=== PATIENT | male | born 1960 | race Hispanic/Latino ===

== ENCOUNTER 2017-12-07 12:05 | Inpatient (IN) | payer BC, MEDICARE ==
[2017-12-07] MEDS ORDERED: Sodium Chloride 0.9% 1,000 ML IV SCH (12:45)
--- NOTE | 2017-12-07 13:03 | ED PDOC ---
Arrival/HPI - General Chief Complaint: Fever Time Seen by Provider: 12/07/17 12:10 Historian: Patient - History of Present Illness Narrative History of Present Illness (Text): 12/07/17 12:43 57 year old male, with past medical history of AVM with seizures, asthma, COPD, hypertension, diabetes and failed back syndrome, presents to the Emergency Department accompanied by , complaining of fever and chills since 4 days. Patient states progressively increasing temperature since onset with Tmax of 102, intermittently improved with Motrin. Patient states associated polyuria with one episode of hematuria, and constipation but denies any other somatic complaints. Patient reports visiting Dr. Waters with the presented symptoms and was subsequently referred to the ED for medical evaluation. Patient denies any nausea, vomiting, diarrhea, abdominal pain, dysuria, rectal pain, body aches, rash, chest pain, shortness of breath, cough, headache, dizziness, neck pain, neck stiffness, back pain, or any other complaints. Patient denies any recent travel or unusual diet intake. Patient informs sick contact with kids on the football field 2 weeks ago. Additionally, patient informs lower dental work-up few days ago with no signs of infection. PMD: Dr. Waters Time/Duration: < week Symptom Onset: Gradual Symptom Course: Unchanged Activities at Onset: Light Context: Home Past Medical History - Provider Review Nursing Documentation Reviewed: Yes - Cardiac Hx Hypertension: Yes - Pulmonary Hx Asthma: Yes - Endocrine/Metabolic Hx Diabetes Mellitus Type 1: Yes - Psychiatric Hx Substance Use: No - Surgical History Hx Cholecystectomy: Yes - Anesthesia Hx Anesthesia: Yes Hx Anesthesia Reactions: No Hx Malignant Hyperthermia: No Family/Social History - Physician Review Nursing Documentation Reviewed: Yes Family/Social History: No Known Family HX Smoking Status: Never Smoked Hx Alcohol Use: No Hx Substance Use: No Allergies/Home Meds Allergies/Adverse Reactions: Allergies levofloxacin Allergy (Verified 12/07/17 12:43) DIARRHEA Home Medications: Home Meds Medication Instructions Recorded Confirmed Albuterol Sulfate [Ventolin Hfa] 1 puff IH Q6 PRN 12/07/17 12/07/17 GlipiZIDE [Glipizide] 10 mg PO BID 12/07/17 12/07/17 HYDROmorphone [Dilaudid] 1 mg PO Q6 PRN 12/07/17 12/07/17 Losartan [Cozaar] 12.5 mg PO DAILY 12/07/17 12/07/17 Topiramate [Topamax] 200 mg PO BID 12/07/17 12/07/17 carBAMazepine [TEGretol] 200 mg PO BID 12/07/17 12/07/17 Review of Systems - Physician Review All systems were reviewed & negative as marked: Yes - Review of Systems Constitutional: Fevers Respiratory: absent: SOB, Cough Cardiovascular: absent: Chest Pain, SHAY Gastrointestinal: Constipation. absent: Abdominal Pain, Diarrhea, Nausea, Vomiting Genitourinary Male: Frequency, Hematuria Musculoskeletal: absent: Back Pain, Neck Pain Skin: absent: Rash Neurological: absent: Headache, Dizziness Physical Exam Respiratory Rate: Normal Appearance: Positive for: Well-Appearing, Non-Toxic, Comfortable Pain Distress: None Mental Status: Positive for: Alert and Oriented X 3 - Systems Exam Head: Present: Atraumatic, Normocephalic Pupils: Present: PERRL Extroacular Muscles: Present: EOMI Conjunctiva: Present: Normal Mouth: Present: Moist Mucous Membranes, Normal Teeth (no signs of gingivitis. No corbin-apical abscess or drainage. No Thuan's angina. ) Pharnyx: Present: Normal. No: ERYTHEMA, EXUDATE Neck: Present: Normal Range of Motion. No: Meningeal Signs, MIDLINE TENDERNESS, Paraspinal Tenderness Respiratory/Chest: Present: Clear to Auscultation, Good Air Exchange. No: Respiratory Distress, Accessory Muscle Use Cardiovascular: Present: Regular Rate and Rhythm, Normal S1, S2. No: Murmurs Abdomen: No: Tenderness, Distention, Peritoneal Signs Back: Present: Normal Inspection. No: CVA Tenderness, Midline Tenderness, Paraspinal Tenderness Upper Extremity: Present: Normal Inspection. No: Cyanosis, Edema Lower Extremity: Present: Normal Inspection. No: Edema Neurological: Present: GCS=15, CN II-XII Intact, Speech Normal Skin: Present: Warm, Dry, Normal Color. No: Rashes Psychiatric: Present: Alert, Oriented x 3, Normal Insight, Normal Concentration Medical Decision Making ED Course and Treatment: 12/07/17 12:44 Impression: 57 year old male presents to the ED complaining of fever, chills and polyuria since 4 days[address] Sent in by Dr. Waters (PMD) for further eval. Likely viral syndrome vs UTI vs influenza. Denies any rectal pain, pain w/ defacation or fullness to rectum area. No meningeal signs or rash. Differential Diagnosis included but are not limited to: UTI vs. Influenza Plan: -- VBG -- EKG -- Labs -- Chest X-ray -- IV Fuids -- Blood Culture -- Influenza A B -- Urinalysis -- Reassess and disposition Prior Visits: Notes and results from previous visits were reviewed. Progress Notes:] 12/07/17 13:52 Right upper PNA. CAP: no NH or recent admissions. labs largely unremarkable. [id number] negative. Given clinical appearance however- Paged Dr. Bourne for Obs. 12/07/17 14:20 appreciate consult w/ Resident on for Dr. Up: to be obs under his service. - RAD Interpretation Narrative RAD Interpretations (Text): 12/07/17 14:08 Chest X-ray reviewed by radiologist, shows: FINDINGS: LINES AND TUBES: None. LUNG AND PLEURA: The lungs are well inflated and the left lung is clear. There is consolidation with air bronchogram in the right upper lobe. No pleural effusion or pneumothorax. HEART AND MEDIASTINUM: The heart is not enlarged. No aortic atherosclerotic calcification present. The hilar and mediastinal contours are within normal limits. SKELETAL STRUCTURES: The bony structures are within normal limits for the patient's age. VISUALIZED UPPER ABDOMEN: Normal. OTHER FINDINGS: None. IMPRESSION: Right upper lobe pneumonia. Follow-up after medical management is recommended to ensure complete resolution. Boom Worker: Radiologist - Scribe Statement The provider has reviewed the documentation as recorded by the Christineibe Jann Benavidez. All medical record entries made by the Christineibmis were at my direction and personally dictated by me. I have reviewed the chart and agree that the record accurately reflects my personal performance of the history, physical exam, medical decision making, and the department course for this patient. I have also personally directed, reviewed, and agree with the discharge instructions and disposition. Disposition/Present on Arrival - Present on Arrival Any Indicators Present on Arrival: No History of DVT/PE: No History of Uncontrolled Diabetes: No Urinary Catheter: No History of Decub. Ulcer: No History Surgical Site Infection Following: None - Disposition Have Diagnosis and Disposition been Completed?: Yes Diagnosis: PNA (pneumonia) Disposition: HOSPITALIZED Disposition Time: 13:57 Patient Problems: Current Active Problems Problem Status Onset PNA (pneumonia) Acute Condition: GOOD Forms: [facility] (Ukrainian)
[2017-12-07 13:20] LABS: BASO # 0.03 K/mm3 (0.0-2.0); BASO % 0.3 % (0.0-3.0); GRAN # 9.3 (1.4-6.5); GRAN % 86.1 % (50.0-68.0); HEMOGLOBIN 11.2 g/dL (14.0-18.0); LYMPH # 0.8 (1.2-3.4); LYMPH % 7.4 % (22.0-35.0); MEAN CELL VOLUME 87.5 fl (80.0-105.0); MEAN CORPUSCULAR HEMOGLOBIN 30.4 pg (25.0-35.0); MEAN CORPUSCULAR HGB CONC 34.7 g/dl (31.0-37.0); MEAN PLATELET VOLUME 9.4 fl (7.0-11.0); MONO # 0.7 (0.1-0.6); MONO % 6.2 % (1.0-6.0); RBC 3.69 10^6/uL (3.5-6.1); RED CELL DISTRIBUTION WIDTH 13.2 % (11.5-14.5); VENOUS BLOOD GAS BASE EXCESS 1.3 mmol/L (0.0-2.0); VENOUS BLOOD GAS PO2 44 mm/Hg (30-55); VENOUS BLOOD PH 7.42 (7.32-7.43); WHITE BLOOD COUNT 10.8 10^3/ul (4.5-11.0)
[2017-12-07 13:24] LABS: URINE BILIRUBIN NEGATIVE (NEGATIVE); URINE BLOOD MODERATE (NEGATIVE); URINE GLUCOSE (UA) NEGATIVE (NEGATIVE); URINE LEUKOCYTE ESTERASE NEGATIVE Leu/uL (NEGATIVE); URINE PROTEIN 100 mg/dL (<30 mg/dL); URINE UROBILINOGEN 0.2 E.U./dL (<1 E.U./dL)
[2017-12-07 13:25] LABS: URINE APPEARANCE TURBID (CLEAR); URINE COLOR YELLOW (YELLOW)
[2017-12-07 13:27] LABS: URINE BACTERIA TRACE (NEG); URINE HYALINE CAST 0 - 2 /hpf; URINE RBC 0 - 2 /hpf (0-2); URINE WBC 0 - 2 /hpf (0-6)
[2017-12-07 13:30] LABS: ALB/GLOB RATIO 1.1 (1.1-1.8); ALBUMIN 4.1 g/dL (3.0-4.8); ALT/SGPT 31 U/L (7-56); AST/SGOT 36 U/L (17-59); BLOOD UREA NITROGEN 16 mg/dL (7-21); CALCIUM 8.8 mg/dL (8.4-10.5); GFR NON-AFRICAN AMERICAN 57
[2017-12-07] MEDS ORDERED: cefTRIAXone 1 gm 1 GM/100 ML BAG IVPB ONE (13:49)
[2017-12-07] MEDS ORDERED: Azithromycin 500MG/NS 250ml 500 MG/250 ML BAG IVPB STA (13:50)
--- NOTE | 2017-12-07 14:05 | RAD ---
HISTORY: Fever COMPARISON: No prior. TECHNIQUE: Chest PA and lateral FINDINGS: LINES AND TUBES: None. LUNG AND PLEURA: The lungs are well inflated and the left lung is clear. There is consolidation with air bronchogram in the right upper lobe. No pleural effusion or pneumothorax. HEART AND MEDIASTINUM: The heart is not enlarged. No aortic atherosclerotic calcification present. The hilar and mediastinal contours are within normal limits. SKELETAL STRUCTURES: The bony structures are within normal limits for the patient's age. VISUALIZED UPPER ABDOMEN: Normal. OTHER FINDINGS: None. IMPRESSION: Right upper lobe pneumonia. Follow-up after medical management is recommended to ensure complete resolution.
[2017-12-07] MEDS ORDERED: Albuterol-Ipratrop 3 mg / 0.5 (3 ml) UD IH PRN (14:07)
[2017-12-07] MEDS ORDERED: Potassium Chloride 20 mEq ER Tab PO ONE (14:07)
--- NOTE | 2017-12-07 14:28 | CP.PCM.HP ---
<Xiao Pearson - Last Filed: 12/08/17 09:55> History of Present Illness - History of Present Illness History of Present Illness: PGY-3 H&P for [address]. Ruiz's service 57 year old male, with past medical history of AVM with seizures, asthma, COPD, hypertension, diabetes and failed back syndrome, presents to the Emergency Department accompanied by , complaining of fever and chills since 4 days. Patient states that for the last 4 days he has had fevers greater then 100, improved with motrin but returned. The temperature has been progressively increasing temperature since onset with Tmax of 102. Patient denies any other symptoms other then increased urinary frequency with one episode of hematuria, denies dysuria. Patient states that he visited his PMD, Dr. Waters with the presented symptoms and was subsequently referred to the ED for medical evaluation. Patient states that 2 weeks ago he had a dental procedure, however visited dentist 5 days ago, and was told that there were no signs of infections. Patient denies any nausea, vomiting, diarrhea, abdominal pain, dysuria, rectal pain, body aches, rash, chest pain, shortness of breath, cough, headache, dizziness, neck pain, neck stiffness, back pain, or any other complaints. Patient denies any recent travel or unusual diet intake. Patient informs sick contact with kids on the football field 2 weeks ago. 12 point ROS was negative except as mentioned above. PMH: AVM with seizures (25 years ago), asthma, COPD, hypertension, diabetes and failed back syndrome PSH: multiple back surgeries, cholecystectomy, AVM, dental procedures social history: former smoker quit about 10 years ago, denies alcohol use, illicit drug use Family history: brother from PE, father- throat ca, mother- stroke allergy: levofloxacin home meds: losartan daily, glipizide 10mg BID, tegretol 200mg BID, topamax 100mg BID, ventolin HFA prn, dilaudid 8mg q6, zantec PRN Present on Admission - Present on Admission Any Indicators Present on Admission: No Review of Systems - Review of Systems All systems: reviewed and no additional remarkable complaints except Past Patient History - Past Social History Smoking Status: Never Smoked - CARDIAC Hx Hypertension: Yes - PULMONARY Hx Asthma: Yes - ENDOCRINE/METABOLIC Hx Diabetes Mellitus Type 1: Yes - PSYCHIATRIC Hx Substance Use: No - SURGICAL HISTORY Hx Cholecystectomy: Yes - ANESTHESIA Hx Anesthesia: Yes Hx Anesthesia Reactions: No Hx Malignant Hyperthermia: No Meds Allergies/Adverse Reactions: Allergies Allergy/AdvReac Type Severity Reaction Status Date / Time levofloxacin Allergy DIARRHEA Verified 12/07/17 12:43 Physical Exam - Constitutional Appears: No Acute Distress - Head Exam Head Exam: ATRAUMATIC, NORMAL INSPECTION, NORMOCEPHALIC - Eye Exam Eye Exam: EOMI, Normal appearance. absent: Conjunctival injection, Periorbital swelling, Periorbital tenderness, Scleral icterus - ENT Exam ENT Exam: Mucous Membranes Dry, Normal External Ear Exam. absent: Mucous Membranes Moist - Neck Exam Neck exam: Positive for: Full Rom. Negative for: Lymphadenopathy, Meningismus, Tenderness, Thyromegaly - Respiratory Exam Respiratory Exam: Clear to Auscultation Bilateral, NORMAL BREATHING PATTERN. absent: Accessory Muscle Use, Chest Wall Tenderness, Rhonchi, Wheezes, Respiratory Distress - Cardiovascular Exam Cardiovascular Exam: REGULAR RHYTHM, +S1, +S2. absent: Bradycardia, Tachycardia, Diastolic murmur, Irregular Rhythm, Systolic Murmur - GI/Abdominal Exam GI & Abdominal Exam: Normal Bowel Sounds, Soft. absent: Diminished Bowel Sounds, Distended, Firm, Guarding, Hernia, Tenderness Additional comments: scars from lap cholecystectomy - Extremities Exam Extremities exam: Positive for: normal inspection, pedal pulses present. Negative for: calf tenderness, full ROM, pedal edema, tenderness - Back Exam Back exam: absent: paraspinal tenderness, vertebral tenderness - Neurological Exam Neurological exam: Alert, CN II-XII Intact, Oriented x3 Additional comments: no confusion, strength 5/5 all extremities - Psychiatric Exam Psychiatric exam: Normal Affect, Normal Mood Additional comments: no agitation, anxiety, depression - Skin Skin Exam: Diaphoretic, Dry, Intact, Normal Color, Warm Additional comments: no rash, abrasions Results - Labs Result Diagrams: 12/07/17 12:44 12/07/17 12:44 Labs: Laboratory Results - last 24 hr 12/07/17 12/07/17 12/07/17 12:44 12:44 12:44 WBC 10.8 RBC 3.69 Hgb 11.2 L Hct 32.3 L MCV 87.5 MCH 30.4 MCHC 34.7 RDW 13.2 Plt Count 206 MPV 9.4 Gran % 86.1 H Lymph % (Auto) 7.4 L [place] % (Auto) 6.2 H Eos % (Auto) 0.0 L Baso % (Auto) 0.3 Gran # 9.30 H Lymph # (Auto) 0.8 L [place] # (Auto) 0.7 H Eos # (Auto) 0.0 Baso # (Auto) 0.03 pO2 VBG pH VBG pCO2 VBG HCO3 VBG Total CO2 VBG O2 Sat (Calc) VBG Base Excess VBG Potassium Sodium Chloride Glucose Lactate FiO2 Potassium Carbon Dioxide Anion Gap BUN Creatinine Est GFR ( Amer) Est GFR (Non-Af Amer) Random Glucose Calcium Magnesium Total Bilirubin AST ALT Alkaline Phosphatase Total Protein Albumin Globulin Albumin/Globulin Ratio Venous Blood Potassium Urine Color Yellow Urine Appearance Turbid Urine pH 6.0 Ur Specific [place] >= 1.030 Urine Protein 100 H Urine Glucose (UA) Negative Urine Ketones Trace H Urine Blood Moderate H Urine Nitrate Negative Urine Bilirubin Negative Urine Urobilinogen 0.2 Ur Leukocyte Esterase Negative Urine RBC 0 - 2 Urine WBC 0 - 2 Ur Epithelial Cells 1 - 3 Urine Bacteria Trace Hyaline Casts 0 - 2 Influenza Typ A,B (EIA) Negative for flu a/b 12/07/17 12/07/17 12:44 12:44 WBC RBC Hgb Hct MCV MCH MCHC RDW Plt Count MPV Gran % Lymph % (Auto) [place] % (Auto) Eos % (Auto) Baso % (Auto) Gran # Lymph # (Auto) [place] # (Auto) Eos # (Auto) Baso # (Auto) pO2 44 VBG pH 7.42 VBG pCO2 40.0 VBG HCO3 25.9 VBG Total CO2 27.1 VBG O2 Sat (Calc) 85.5 H VBG Base Excess 1.3 VBG Potassium 3.1 L Sodium 132.0 133 Chloride 99.0 96 L Glucose 204 H Lactate 1.7 FiO2 21.0 Potassium 3.1 L Carbon Dioxide 25 Anion Gap 15 BUN 16 Creatinine 1.3 Est GFR ( Amer) > 60 Est GFR (Non-Af Amer) 57 Random Glucose 197 H Calcium 8.8 Magnesium 2.1 Total Bilirubin 0.9 AST 36 ALT 31 Alkaline Phosphatase 60 Total Protein 8.0 Albumin 4.1 Globulin 3.8 Albumin/Globulin Ratio 1.1 Venous Blood Potassium 3.1 L Urine Color Urine Appearance Urine pH Ur Specific [place] Urine Protein Urine Glucose (UA) Urine Ketones Urine Blood Urine Nitrate Urine Bilirubin Urine Urobilinogen Ur Leukocyte Esterase Urine RBC Urine WBC Ur Epithelial Cells Urine Bacteria Hyaline Casts Influenza Typ A,B (EIA) Assessment & Plan - Assessment and Plan (Free Text) Assessment: fever- mostly likely due to PNE r/o UTI, flu anemia hypokalemia asthma HTN AVM with seizures failed back syndrome Labs and imaging reviewed. UA was negative for leukocytes esterase, nitrates, with moderate blood, which makes UTI unlikely. Influenza type a,b was neg. CXR showed right upper lobe PNE. Lactate within normal limits. In ED patient was given ceftriaxone and azithromycin, will continue. Patient was also started on IVF, NS @100cc/hr. Blood cultures were obtained. Meningitis unlikely due to negative meningeal sign. Patient was found to have Low hgb, will get iron panel. Patient was also hypokalemic, will replace and repeat in AM. Will continue losartan for BP. Duonebs prn for history of asthma. Will continue seizure medications. Will hold glipizide and start ISS when in hospital. Continue home pain medication. <Roberto Ruiz S - Last Filed: 12/08/17 21:17> Results - Vital Signs Recent Vital Signs: Last Vital Signs Temp 100.6 F H 12/08/17 14:00 Pulse 78 12/08/17 14:00 Resp 20 12/08/17 14:00 BP 92/51 L 12/08/17 14:00 Pulse Ox 95 12/08/17 14:00 - Labs Result Diagrams: 12/08/17 08:30 12/08/17 08:30 Labs: Laboratory Results - last 24 hr 12/07/17 12/07/17 12/08/17 14:35 21:17 06:28 WBC RBC Hgb Hct MCV MCH MCHC RDW Plt Count MPV Gran % Lymph % (Auto) [place] % (Auto) Eos % (Auto) Baso % (Auto) Gran # Lymph # (Auto) [place] # (Auto) Eos # (Auto) Baso # (Auto) Sodium Potassium Chloride Carbon Dioxide Anion Gap BUN Creatinine Est GFR ( Amer) Est GFR (Non-Af Amer) POC Glucose (mg/dL) 186 H 102 134 H Random Glucose Calcium Phosphorus Magnesium Iron TIBC % Saturation Ferritin Total Bilirubin AST ALT Alkaline Phosphatase Total Protein Albumin Globulin Albumin/Globulin Ratio 12/08/17 12/08/17 12/08/17 08:30 08:30 08:30 WBC 8.4 D RBC 3.37 L Hgb 10.3 L Hct 29.7 L MCV 88.1 MCH 30.6 MCHC 34.7 RDW 13.3 Plt Count 207 MPV 9.3 Gran % 81.8 H Lymph % (Auto) 9.5 L [place] % (Auto) 8.6 H Eos % (Auto) 0.0 L Baso % (Auto) 0.1 Gran # 6.83 H Lymph # (Auto) 0.8 L [place] # (Auto) 0.7 H Eos # (Auto) 0.0 Baso # (Auto) 0.01 Sodium 135 Potassium 2.7 L* Chloride 99 Carbon Dioxide 24 Anion Gap 15 BUN 24 H Creatinine 1.2 Est GFR ( Amer) > 60 Est GFR (Non-Af Amer) > 60 POC Glucose (mg/dL) Random Glucose 162 H Calcium 8.2 L Phosphorus 2.1 L Magnesium 2.3 H Iron 30 L TIBC 250 L % Saturation 12 L Ferritin 173.0 Total Bilirubin 0.8 AST 41 ALT 35 Alkaline Phosphatase 50 Total Protein 7.2 Albumin 3.8 Globulin 3.4 Albumin/Globulin Ratio 1.1 12/08/17 12/08/17 12/08/17 10:50 15:45 20:48 WBC RBC Hgb Hct MCV MCH MCHC RDW Plt Count MPV Gran % Lymph % (Auto) [place] % (Auto) Eos % (Auto) Baso % (Auto) Gran # Lymph # (Auto) [place] # (Auto) Eos # (Auto) Baso # (Auto) Sodium Potassium Chloride Carbon Dioxide Anion Gap BUN Creatinine Est GFR ( Amer) Est GFR (Non-Af Amer) POC Glucose (mg/dL) 192 H 95 136 H Random Glucose Calcium Phosphorus Magnesium Iron TIBC % Saturation Ferritin Total Bilirubin AST ALT Alkaline Phosphatase Total Protein Albumin Globulin Albumin/Globulin Ratio Assessment & Plan - Assessment and Plan (Free Text) Assessment: Pt seen and examined. I have reviewed the note of the medical concierge and agree with it. I have discussed the assessment and plan with the resident. I have reviewed the patient's labs and medications. Pt with fever and CXR that shows pneumonia. He was started on IV Abx and IVF. I spoke to Dr Waters, PMD. He will need BCx. Will replace K. Check iron levels due to anemia. Pt will be continued on Losartan for HTN. Place on ISS for DM-2.
[2017-12-07] MEDS: Insulin Reg-LOW-Coverage SC SCH ×2 (17:37→22:01)
[2017-12-07 17:41] VITALS: BMI 35.3
--- NOTE | 2017-12-07 23:18 | CARD ---
APPROVED REPORT Date of service: 12/07/2017 EKG Measurement Heart [id number] <Conclusion> Normal sinus rhythm Nonspecifc T wave changes Abnormal ECG
[2017-12-08 09:00] LABS: BASO # 0.01 K/mm3 (0.0-2.0); BASO % 0.1 % (0.0-3.0); GRAN # 6.83 (1.4-6.5); GRAN % 81.8 % (50.0-68.0); HEMOGLOBIN 10.3 g/dL (14.0-18.0); LYMPH # 0.8 (1.2-3.4); LYMPH % 9.5 % (22.0-35.0); MEAN CELL VOLUME 88.1 fl (80.0-105.0); MEAN CORPUSCULAR HEMOGLOBIN 30.6 pg (25.0-35.0); MEAN CORPUSCULAR HGB CONC 34.7 g/dl (31.0-37.0); MEAN PLATELET VOLUME 9.3 fl (7.0-11.0); MONO # 0.7 (0.1-0.6); MONO % 8.6 % (1.0-6.0); RBC 3.37 10^6/uL (3.5-6.1); RED CELL DISTRIBUTION WIDTH 13.3 % (11.5-14.5); WHITE BLOOD COUNT 8.4 10^3/ul (4.5-11.0)
[2017-12-08 09:07] LABS: IRON 30 ug/dL (45-180)
[2017-12-08 09:17] LABS: % IRON SATURATION 12 % (20-55); TOTAL IRON BINDING CAPACITY 250 ug/dL (261-462)
[2017-12-08 09:18] LABS: ALB/GLOB RATIO 1.1 (1.1-1.8); ALBUMIN 3.8 g/dL (3.0-4.8); ALT/SGPT 35 U/L (7-56); AST/SGOT 41 U/L (17-59); BLOOD UREA NITROGEN 24 mg/dL (7-21); CALCIUM 8.2 mg/dL (8.4-10.5); GFR NON-AFRICAN AMERICAN > 60
[2017-12-08] MEDS ORDERED: Potassium Chloride 20 mEq ER Tab PO ONE (09:42)
--- NOTE | 2017-12-08 09:50 | CP.PCM.PN ---
<Xiao Pearson - Last Filed: 12/08/17 12:27> Subjective - Date & Time of Evaluation Date of Evaluation: 12/08/17 Time of Evaluation: 07:39 - Subjective Subjective: PGY-3 Medicine progress note for Dr. Ruiz;s service Patient seen and examined at bedside. No acute distress. Patient states that he was not able to sleep well last night due to movement throughout the room. He denies fever, chills, chest pain, sob, n/v, abd pain. Objective - Vital Signs/Intake and Output Vital Signs (last 24 hours): Temp Pulse Resp BP Pulse Ox 98.1 F 94 H 18 119/62 95 12/07/17 22:53 12/07/17 22:53 12/07/17 22:53 12/07/17 22:53 12/07/17 22:53 Intake and Output: 12/08/17 12/08/17 06:59 18:59 Intake Total 800 Output Total 100 Balance 700 - Medications Medications: Current Medications Albuterol/Ipratropium (Duoneb 3 Mg/0.5 Mg (3 Ml) Ud) 3 ml IH Q2H PRN PRN Reason: Shortness of Breath Carbamazepine (Tegretol) 200 mg PO BID ANN; Protocol Last Admin: 12/07/17 17:36 Dose: 200 mg Ferrous Sulfate (Feosol) 324 mg PO DAILY ANN Hydromorphone HCl (Dilaudid) 8 mg PO Q4H PRN PRN Reason: Pain, severe (8-10) Ceftriaxone Sodium (Rocephin 1 Gram Ivpb) 1 gm in 100 mls @ 100 mls/hr IVPB DAILY ANN; Protocol Stop: 12/12/17 10:59 Azithromycin (Zithromax 500mg In Ns) 500 mg in 250 mls @ 167 mls/hr IVPB DAILY ANN; Protocol Potassium Chloride (Potassium Chloride 20 Meq/100 Ml) 20 meq in 100 mls @ 50 mls/hr IVPB ONCE ONE Stop: 12/08/17 11:40 Insulin Human Regular (Humulin R Low) 0 units SC ACHS ANN; Protocol Last Admin: 12/07/17 22:01 Dose: Not Given Losartan Potassium (Cozaar) 12.5 mg PO DAILY ANN Topiramate (Topamax) 200 mg PO BID ANN; Protocol - Labs Labs: 12/08/17 08:30 12/08/17 08:30 - Additional Findings Additional findings: - Constitutional Appears: No Acute Distress - Head Exam Head Exam: ATRAUMATIC, NORMAL INSPECTION, NORMOCEPHALIC - Eye Exam Eye Exam: EOMI, Normal appearance. absent: Conjunctival injection, Periorbital swelling, Periorbital tenderness, Scleral icterus - ENT Exam ENT Exam: Mucous Membranes Dry, Normal External Ear Exam. absent: Mucous Membranes Moist - Neck Exam Neck exam: Positive for: Full Rom. Negative for: Lymphadenopathy, Meningismus, Tenderness, Thyromegaly - Respiratory Exam Respiratory Exam: Clear to Auscultation Bilateral, NORMAL BREATHING PATTERN. absent: Accessory Muscle Use, Chest Wall Tenderness, Rhonchi, Wheezes, Respiratory Distress - Cardiovascular Exam Cardiovascular Exam: REGULAR RHYTHM, +S1, +S2. absent: Bradycardia, Tachycardia, Diastolic murmur, Irregular Rhythm, Systolic Murmur - GI/Abdominal Exam GI & Abdominal Exam: Normal Bowel Sounds, Soft. absent: Diminished Bowel Sounds, Distended, Firm, Guarding, Hernia, Tenderness Additional comments: scars from lap cholecystectomy - Extremities Exam Extremities exam: Positive for: normal inspection, pedal pulses present. Negative for: calf tenderness, full ROM, pedal edema, tenderness - Back Exam Back exam: absent: paraspinal tenderness, vertebral tenderness - Neurological Exam Neurological exam: Alert, CN II-XII Intact, Oriented x3 Additional comments: no confusion, strength 5/5 all extremities - Psychiatric Exam Psychiatric exam: Normal Affect, Normal Mood Additional comments: no agitation, anxiety, depression - Skin Skin Exam: Diaphoretic, Dry, Intact, Normal Color, Warm Additional comments: no rash, abrasions Assessment and Plan - Assessment and Plan (Free Text) Assessment: PNA anemia hypokalemia asthma HTN AVM with seizures failed back syndrome Labs and imaging reviewed. No leukocytosis this AM. Influenza type a,b was neg. CXR showed right upper lobe PNE. Will continue antibiotics, ceftriaxone and azithromycin. Will stop IVF, patient is eating. Blood cultures showed no growth after 24 hours. Patient was found to have Low hgb with low iron, will start PO feosol. Patient was also hypokalemic, will replace with PO and IV, repeat in AM. continue losartan for BP. Duonebs prn for history of asthma. Will continue seizure medications. Continue ISS when in hospital. Continue home pain medication. case reviewed and discussed with Dr. Ruiz <Roberto Ruiz S - Last Filed: 12/08/17 20:55> Objective - Vital Signs/Intake and Output Vital Signs (last 24 hours): Temp Pulse Resp BP Pulse Ox 100.6 F H 78 20 92/51 L 95 12/08/17 14:00 12/08/17 14:00 12/08/17 14:00 12/08/17 14:00 12/08/17 14:00 Intake and Output: 12/08/17 12/09/17 18:59 06:59 Intake Total 1620 Balance 1620 - Medications Medications: Current Medications Albuterol/Ipratropium (Duoneb 3 Mg/0.5 Mg (3 Ml) Ud) 3 ml IH Q2H PRN PRN Reason: Shortness of Breath Carbamazepine (Tegretol) 200 mg PO BID [facility]; Protocol Last Admin: 12/08/17 17:21 Dose: 200 mg Ferrous Sulfate (Feosol) 324 mg PO DAILY [facility] Last Admin: 12/08/17 09:59 Dose: 324 mg Hydromorphone HCl (Dilaudid) 8 mg PO Q4H PRN PRN Reason: Pain, severe (8-10) Last Admin: 12/08/17 20:41 Dose: 8 mg Ceftriaxone Sodium (Rocephin 1 Gram Ivpb) 1 gm in 100 mls @ 100 mls/hr IVPB DAILY [facility]; Protocol Stop: 12/12/17 10:59 Last Admin: 12/08/17 10:06 Dose: 100 mls/hr Azithromycin (Zithromax 500mg In Ns) 500 mg in 250 mls @ 167 mls/hr IVPB DAILY [facility]; Protocol Last Admin: 12/08/17 10:07 Dose: 167 mls/hr Sodium Chloride (Sodium Chloride 0.9%) 500 mls @ 60 mls/hr IV .Q8H20M ANN Stop: 12/08/17 23:04 Last Admin: 12/08/17 14:55 Dose: 60 mls/hr Insulin Human Regular (Humulin R Low) 0 units SC ACHS [facility]; Protocol Last Admin: 12/08/17 17:21 Dose: Not Given Topiramate (Topamax) 200 mg PO BID [facility]; Protocol Last Admin: 12/08/17 17:20 Dose: 200 mg - Labs Labs: 12/08/17 08:30 12/08/17 08:30 Assessment and Plan - Assessment and Plan (Free Text) Assessment: Pt seen and examined. I have reviewed the note of the medical imaging technologist and agree with it. I have discussed the assessment and plan with the resident. I have reviewed the patient's labs and medications. Pt with pnuemonia- community acquired. PT had fevers. I spoke to Dr Waters, FRANCI. Pt had neg flu. He has been on IVF and I will discontinue them fluids. BCx has been ordered. He will be on Duoneb treatments. His low K will be replaced.
[2017-12-08] MEDS: cefTRIAXone 1 gm 1 GM/100 ML BAG IVPB SCH (10:06)
[2017-12-08] MEDS: Azithromycin 500MG/NS 250ml 500 MG/250 ML BAG IVPB SCH (10:07)
[2017-12-08] MEDS: Insulin Reg-LOW-Coverage SC SCH ×4 (11:47→22:13)
[2017-12-08] MEDS ORDERED: Sodium Chloride 0.9% 500 ML IV SCH (14:45)
[2017-12-09] MEDS: Insulin Reg-LOW-Coverage SC SCH ×2 (08:00→12:00)
[2017-12-09 08:06] LABS: ALBUMIN 3.4 g/dL (3.0-4.8); ALT/SGPT 58 U/L (7-56); AST/SGOT 99 U/L (17-59); BLOOD UREA NITROGEN 21 mg/dL (7-21); CALCIUM 7.8 mg/dL (8.4-10.5); GFR NON-AFRICAN AMERICAN > 60
[2017-12-09] MEDS ORDERED: Potassium Chloride 40 mEq/30 ml LIQ UD PO ONE ×3 (08:26→13:00)
[2017-12-09] MEDS ORDERED: Potassium Phosphate 3 mmol/ml Inj IV ONE (08:31)
[2017-12-09] MEDS: cefTRIAXone 1 gm 1 GM/100 ML BAG IVPB SCH (09:27)
[2017-12-09] MEDS: Azithromycin 500MG/NS 250ml 500 MG/250 ML BAG IVPB SCH (09:27)
--- NOTE | 2017-12-09 09:34 | CP.PCM.DIS ---
<Xiao Pearson - Last Filed: 12/09/17 13:55> Provider - Provider Date of Admission: 12/07/17 14:31 Attending physician: Roberto Ruiz MD Primary care physician: Carlita Waters MD Time Spent in preparation of Discharge (in minutes): 45 Hospital Course - Lab Results Lab Results: Micro Results 12/07/17 13:20 Blood Blood Culture - Preliminary NO GROWTH AFTER 24 HOURS 12/07/17 12:55 Blood Blood Culture - Preliminary NO GROWTH AFTER 24 HOURS Most Recent Lab Values WBC 8.4 10^3/ul (4.5-11.0) D 12/08/17 08:30 RBC 3.37 10^6/uL (3.5-6.1) L 12/08/17 08:30 Hgb 10.3 g/dL (14.0-18.0) L 12/08/17 08:30 Hct 29.7 % (42.0-52.0) L 12/08/17 08:30 MCV 88.1 fl (80.0-105.0) 12/08/17 08:30 MCH 30.6 pg (25.0-35.0) 12/08/17 08:30 MCHC 34.7 g/dl (31.0-37.0) 12/08/17 08:30 RDW 13.3 % (11.5-14.5) 12/08/17 08:30 Plt Count 207 10^3/uL (120.0-450.0) 12/08/17 08:30 MPV 9.3 fl (7.0-11.0) 12/08/17 08:30 Gran % 81.8 % (50.0-68.0) H 12/08/17 08:30 Lymph % (Auto) 9.5 % (22.0-35.0) L 12/08/17 08:30 [place] % (Auto) 8.6 % (1.0-6.0) H 12/08/17 08:30 Eos % (Auto) 0.0 % (1.5-5.0) L 12/08/17 08:30 Baso % (Auto) 0.1 % (0.0-3.0) 12/08/17 08:30 Gran # 6.83 (1.4-6.5) H 12/08/17 08:30 Lymph # (Auto) 0.8 (1.2-3.4) L 12/08/17 08:30 [place] # (Auto) 0.7 (0.1-0.6) H 12/08/17 08:30 Eos # (Auto) 0.0 (0.0-0.7) 12/08/17 08:30 Baso # (Auto) 0.01 K/mm3 (0.0-2.0) 12/08/17 08:30 pO2 44 mm/Hg (30-55) 12/07/17 12:44 VBG pH 7.42 (7.32-7.43) 12/07/17 12:44 VBG pCO2 40.0 (40-60) 12/07/17 12:44 VBG HCO3 25.9 mmol/l (21-28) 12/07/17 12:44 VBG Total CO2 27.1 mmol.L (22-28) 12/07/17 12:44 VBG O2 Sat (Calc) 85.5 % (40-65) H 12/07/17 12:44 VBG Base Excess 1.3 mmol/L (0.0-2.0) 12/07/17 12:44 VBG Potassium 3.1 mmol/L (3.6-5.2) L 12/07/17 12:44 Sodium 132.0 mmol/L (132-148) 12/07/17 12:44 Chloride 99.0 mmol/L (98-107) 12/07/17 12:44 Glucose 204 mg/dl (75-110) H 12/07/17 12:44 Lactate 1.7 mmol/L (0.7-2.1) 12/07/17 12:44 FiO2 21.0 % 12/07/17 12:44 Sodium 135 mmol/L (132-148) 12/09/17 07:00 Potassium 3.1 mmol/L (3.6-5.0) L 12/09/17 07:00 Chloride 99 mmol/L (98-107) 12/09/17 07:00 Carbon Dioxide 28 mmol/L (21-33) 12/09/17 07:00 Anion Gap 11 (10-20) 12/09/17 07:00 BUN 21 mg/dL (7-21) 12/09/17 07:00 Creatinine 1.1 mg/dl (0.8-1.5) 12/09/17 07:00 Est GFR ( Amer) > 60 12/09/17 07:00 Est GFR (Non-Af Amer) > 60 12/09/17 07:00 POC Glucose (mg/dL) 131 mg/dL (65-110) H 12/09/17 06:30 Random Glucose 137 mg/dL (70-110) H 12/09/17 07:00 Calcium 7.8 mg/dL (8.4-10.5) L 12/09/17 07:00 Phosphorus 1.9 mg/dL (2.5-4.5) L 12/09/17 07:00 Magnesium 2.4 mg/dL (1.7-2.2) H 12/09/17 07:00 Iron 30 ug/dL (45-180) L 12/08/17 08:30 TIBC 250 ug/dL (261-462) L 12/08/17 08:30 % Saturation 12 % (20-55) L 12/08/17 08:30 Ferritin 173.0 ng/mL 12/08/17 08:30 Total Bilirubin 0.6 mg/dL (0.2-1.3) 12/09/17 07:00 AST 99 U/L (17-59) H D 12/09/17 07:00 ALT 58 U/L (7-56) H 12/09/17 07:00 Alkaline Phosphatase 47 U/L (38-126) 12/09/17 07:00 Total Protein 6.7 g/dL (5.8-8.3) 12/09/17 07:00 Albumin 3.4 g/dL (3.0-4.8) 12/09/17 07:00 Globulin 3.3 gm/dL 12/09/17 07:00 Albumin/Globulin Ratio 1.0 (1.1-1.8) L 12/09/17 07:00 Venous Blood Potassium 3.1 mmol/L (3.6-5.2) L 12/07/17 12:44 Urine Color Yellow (YELLOW) 12/07/17 12:44 Urine Appearance Turbid (CLEAR) 12/07/17 12:44 Urine pH 6.0 (4.7-8.0) 12/07/17 12:44 Ur Specific [place] >= 1.030 (1.005-1.035) 12/07/17 12:44 Urine Protein 100 mg/dL (<30 mg/dL) H 12/07/17 12:44 Urine Glucose (UA) Negative mg/dL (NEGATIVE) 12/07/17 12:44 Urine Ketones Trace mg/dL (NEGATIVE) H 12/07/17 12:44 Urine Blood Moderate (NEGATIVE) H 12/07/17 12:44 Urine Nitrate Negative (NEGATIVE) 12/07/17 12:44 Urine Bilirubin Negative (NEGATIVE) 12/07/17 12:44 Urine Urobilinogen 0.2 E.U./dL (<1 E.U./dL) 12/07/17 12:44 Ur Leukocyte Esterase Negative Diana/uL (NEGATIVE) 12/07/17 12:44 Urine RBC 0 - 2 /hpf (0-2) 12/07/17 12:44 Urine WBC 0 - 2 /hpf (0-6) 12/07/17 12:44 Ur Epithelial Cells 1 - 3 /hpf (0-5) 12/07/17 12:44 Urine Bacteria Trace (NEG) 12/07/17 12:44 Hyaline Casts 0 - 2 /hpf 12/07/17 12:44 Influenza Typ A,B (EIA) Negative for flu a/b (NEGATIVE) 12/07/17 12:44 - Hospital Course Hospital Course: 57 year old male, with pmh of AVM with seizures, asthma, COPD, hypertension, diabetes and failed back syndrome, presented accompanied by , complaining of fever and chills for the last 4 days. The fevers improved with motrin but returned. The fevers has been progressively increasing temperature since onset with Tmax of 102. Patient was instructed to come to ED by PMD. Patient states that 2 weeks ago he had a dental procedure, and has been eating less food. On admission patient had fever. Influenza type a,b was neg. CXR showed right upper lobe PNE. He was started on IV antibiotics and given IVF. Blood cultures showed no growth after 48 hours. Patient was also hypokalemic and hypophostemia, will replaced. Chronic conditions were managed. Discharge plan and instructions were discussed with patient, all questions answered. Discharge Exam - Additional Findings Additional findings: - Constitutional Appears: No Acute Distress - Head Exam Head Exam: ATRAUMATIC, NORMAL INSPECTION, NORMOCEPHALIC - Eye Exam Eye Exam: EOMI, Normal appearance. absent: Conjunctival injection, - ENT Exam ENT Exam: Mucous Membranes Dry, Normal External Ear Exam. absent: Mucous Membranes Moist - Neck Exam Neck exam: Positive for: Full Rom. Negative for: Tenderness - Respiratory Exam Respiratory Exam: Clear to Auscultation Bilateral, NORMAL BREATHING PATTERN. absent: Accessory Muscle Use, Chest Wall Tenderness, Rhonchi, Wheezes, Respiratory Distress - Cardiovascular Exam Cardiovascular Exam: REGULAR RHYTHM, +S1, +S2. absent: Bradycardia, Tachycardia, Diastolic murmur, Irregular Rhythm, Systolic Murmur - GI/Abdominal Exam GI & Abdominal Exam: Normal Bowel Sounds, Soft. absent: Diminished Bowel Sounds, Distended, Firm, Guarding, Hernia, Tenderness - Extremities Exam Extremities exam: Positive for: normal inspection, pedal pulses present. Negative for: calf tenderness, full ROM, pedal edema, tenderness - Back Exam Back exam: absent: paraspinal tenderness, vertebral tenderness - Neurological Exam Neurological exam: Alert, CN II-XII Intact, Oriented x3 Additional comments: no confusion - Psychiatric Exam Psychiatric exam: Normal Affect, Normal Mood Additional comments: no agitation, anxiety, depression - Skin Skin Exam: Diaphoretic, Dry, Intact, Normal Color, Warm Discharge Plan - Discharge Medications Prescriptions: Amoxicillin/Potassium Clav [Augmentin 500-125 Tablet] 1 each PO BID #10 tablet Azithromycin [Zithromax] 250 mg PO DAILY #4 tab Phosphorus/Potassium/Sodium [Neutra-Phos] 1 pkt PO DAILY #5 packet - Follow Up Plan Condition: GOOD Disposition: HOME/ ROUTINE Instructions: Pneumonia in Adults, Smoking: Not Just Harmful to Your Lungs and Heart, Dangers of Secondhand Smoke, Chronic Pain, Preventing Falls, Taking Narcotics Safely, Why Vaccines Are Important for Everyone, Flu Vaccine Additional Instructions: Follow up with [facility]Dr. Jt Taylor in 3-5 days Referrals: Carlita Waters MD [Primary Care Provider] - <Roberto Ruiz - Last Filed: 12/09/17 16:04> Provider - Provider Date of Admission: 12/07/17 14:31 Attending physician: Roberto Ruiz MD Primary care physician: Carlita Waters MD Hospital Course - Lab Results Lab Results: Micro Results 12/07/17 13:20 Blood Blood Culture - Preliminary NO GROWTH AFTER 48 HOURS 12/07/17 12:55 Blood Blood Culture - Preliminary NO GROWTH AFTER 48 HOURS Most Recent Lab Values WBC 8.4 10^3/ul (4.5-11.0) D 12/08/17 08:30 RBC 3.37 10^6/uL (3.5-6.1) L 12/08/17 08:30 Hgb 10.3 g/dL (14.0-18.0) L 12/08/17 08:30 Hct 29.7 % (42.0-52.0) L 12/08/17 08:30 MCV 88.1 fl (80.0-105.0) 12/08/17 08:30 MCH 30.6 pg (25.0-35.0) 12/08/17 08:30 MCHC 34.7 g/dl (31.0-37.0) 12/08/17 08:30 RDW 13.3 % (11.5-14.5) 12/08/17 08:30 Plt Count 207 10^3/uL (120.0-450.0) 12/08/17 08:30 MPV 9.3 fl (7.0-11.0) 12/08/17 08:30 Gran % 81.8 % (50.0-68.0) H 12/08/17 08:30 Lymph % (Auto) 9.5 % (22.0-35.0) L 12/08/17 08:30 [place] % (Auto) 8.6 % (1.0-6.0) H 12/08/17 08:30 Eos % (Auto) 0.0 % (1.5-5.0) L 12/08/17 08:30 Baso % (Auto) 0.1 % (0.0-3.0) 12/08/17 08:30 Gran # 6.83 (1.4-6.5) H 12/08/17 08:30 Lymph # (Auto) 0.8 (1.2-3.4) L 12/08/17 08:30 [place] # (Auto) 0.7 (0.1-0.6) H 12/08/17 08:30 Eos # (Auto) 0.0 (0.0-0.7) 12/08/17 08:30 Baso # (Auto) 0.01 K/mm3 (0.0-2.0) 12/08/17 08:30 pO2 44 mm/Hg (30-55) 12/07/17 12:44 VBG pH 7.42 (7.32-7.43) 12/07/17 12:44 VBG pCO2 40.0 (40-60) 12/07/17 12:44 VBG HCO3 25.9 mmol/l (21-28) 12/07/17 12:44 VBG Total CO2 27.1 mmol.L (22-28) 12/07/17 12:44 VBG O2 Sat (Calc) 85.5 % (40-65) H 12/07/17 12:44 VBG Base Excess 1.3 mmol/L (0.0-2.0) 12/07/17 12:44 VBG Potassium 3.1 mmol/L (3.6-5.2) L 12/07/17 12:44 Sodium 132.0 mmol/L (132-148) 12/07/17 12:44 Chloride 99.0 mmol/L (98-107) 12/07/17 12:44 Glucose 204 mg/dl (75-110) H 12/07/17 12:44 Lactate 1.7 mmol/L (0.7-2.1) 12/07/17 12:44 FiO2 21.0 % 12/07/17 12:44 Sodium 135 mmol/L (132-148) 12/09/17 07:00 Potassium 3.1 mmol/L (3.6-5.0) L 12/09/17 07:00 Chloride 99 mmol/L (98-107) 12/09/17 07:00 Carbon Dioxide 28 mmol/L (21-33) 12/09/17 07:00 Anion Gap 11 (10-20) 12/09/17 07:00 BUN 21 mg/dL (7-21) 12/09/17 07:00 Creatinine 1.1 mg/dl (0.8-1.5) 12/09/17 07:00 Est GFR ( Amer) > 60 12/09/17 07:00 Est GFR (Non-Af Amer) > 60 12/09/17 07:00 POC Glucose (mg/dL) 133 mg/dL (65-110) H 12/09/17 11:06 Random Glucose 137 mg/dL (70-110) H 12/09/17 07:00 Calcium 7.8 mg/dL (8.4-10.5) L 12/09/17 07:00 Phosphorus 1.9 mg/dL (2.5-4.5) L 12/09/17 07:00 Magnesium 2.4 mg/dL (1.7-2.2) H 12/09/17 07:00 Iron 30 ug/dL (45-180) L 12/08/17 08:30 TIBC 250 ug/dL (261-462) L 12/08/17 08:30 % Saturation 12 % (20-55) L 12/08/17 08:30 Ferritin 173.0 ng/mL 12/08/17 08:30 Total Bilirubin 0.6 mg/dL (0.2-1.3) 12/09/17 07:00 AST 99 U/L (17-59) H D 12/09/17 07:00 ALT 58 U/L (7-56) H 12/09/17 07:00 Alkaline Phosphatase 47 U/L (38-126) 12/09/17 07:00 Total Protein 6.7 g/dL (5.8-8.3) 12/09/17 07:00 Albumin 3.4 g/dL (3.0-4.8) 12/09/17 07:00 Globulin 3.3 gm/dL 12/09/17 07:00 Albumin/Globulin Ratio 1.0 (1.1-1.8) L 12/09/17 07:00 Venous Blood Potassium 3.1 mmol/L (3.6-5.2) L 12/07/17 12:44 Urine Color Yellow (YELLOW) 12/07/17 12:44 Urine Appearance Turbid (CLEAR) 12/07/17 12:44 Urine pH 6.0 (4.7-8.0) 12/07/17 12:44 Ur Specific [place] >= 1.030 (1.005-1.035) 12/07/17 12:44 Urine Protein 100 mg/dL (<30 mg/dL) H 12/07/17 12:44 Urine Glucose (UA) Negative mg/dL (NEGATIVE) 12/07/17 12:44 Urine Ketones Trace mg/dL (NEGATIVE) H 12/07/17 12:44 Urine Blood Moderate (NEGATIVE) H 12/07/17 12:44 Urine Nitrate Negative (NEGATIVE) 12/07/17 12:44 Urine Bilirubin Negative (NEGATIVE) 12/07/17 12:44 Urine Urobilinogen 0.2 E.U./dL (<1 E.U./dL) 12/07/17 12:44 Ur Leukocyte Esterase Negative Diana/uL (NEGATIVE) 12/07/17 12:44 Urine RBC 0 - 2 /hpf (0-2) 12/07/17 12:44 Urine WBC 0 - 2 /hpf (0-6) 12/07/17 12:44 Ur Epithelial Cells 1 - 3 /hpf (0-5) 12/07/17 12:44 Urine Bacteria Trace (NEG) 12/07/17 12:44 Hyaline Casts 0 - 2 /hpf 12/07/17 12:44 Influenza Typ A,B (EIA) Negative for flu a/b (NEGATIVE) 12/07/17 12:44 - Hospital Course Hospital Course: Pt seen and examined. I have reviewed the note of the medical records tech and agree with it. I have discussed the assessment and plan with the resident. I have reviewed the patient's labs and medications. Pt with pneumonia- community acquired. He is feeling better. He is able to ambulate. He does not have a fever. No flu. Will change to PO Abx and discharge home. K and Phosp was replaced. He will f/u with PMD (Dr Waters).
[2017-12-09 09:39] VITALS: RESP 20
[2017-12-09 14:58] VITALS: BP 138/63; PULSE 76; TEMP 97.9; O2SAT 96
== END 2017-12-09 17:10 | disposition home or self-care (01) | DRG 194 ==
LOC: ED 12:05 → ERH 14:31 → OBSVTOIN 14:41 → ERH 15:39 → 5RSO 16:42
PROVIDERS: ADMIT Internal Medicine Nephrology; ATTEND Internal Medicine Nephrology
DX: J18.9 Pneumonia, unspecified organism (principal); J44.0 Chronic obstructive pulmonary disease with (acute) lower respiratory infection; E11.9 Type 2 diabetes mellitus without complications; I10 Essential (primary) hypertension; E87.6 Hypokalemia; D64.9 Anemia, unspecified; K59.00 Constipation, unspecified; R56.9 Unspecified convulsions; Z87.891 Personal history of nicotine dependence